=== PATIENT | female | born 1955 | race Caucasian/White ===

== ENCOUNTER 2016-11-27 01:59 | Observation (INO) | payer OTHER ==
[~2016-11-27] VITALS: Ht 160 cm; Wt 98.8 kg
[~2016-11-27 01:59] MED LIST: ALLEGRA180 MG PO; ALTACE5 MG PO; ASPIR 8181 M1 PO; BELBUCA150 MCG BC; CENTRUM SILVER1 EAC4 PO; COLACE100 MG PO; CYCLOBENZAPRINE5 MG PO; DUEXIS 800-26.1 EACH PO; FISH OIL 1,0001 EAC7 PO; FLECTOR 1.3%1 PATC1 TD; GABAPENTIN300 MG PO; HYDROCHLOROTHIA25 MG PO; JOINT SUPPORT PO; LIDOCAINE700 MG TD; LO-DOSE ASPIRIN81 M2 PO; MUCINEX1200 MG PO; NIFEDIPINE20 MG PO; PREDNISONE10 MG PO; PRILOSEC OTC20 MG PO; PRILOSEC20 MG PO; PROAIR HFA8.5 GM IH; RAMIPRIL10 MG PO; RAMIPRIL5 MG PO; TIZANIDINE HCL4 MG PO; TRAMADOL HCL50 MG PO; UNISOM SLEEP AI25 MG PO; UNISOM50 MG PO; [UNRECOGNIZED DRUG - REMARK] PO
[2016-11-27 02:49] LABS: EOSINOPHIL COUNT 0.2 K/uL (0-0.3); HEMATOCRIT 36.2 % (36.0-46.0); IMMATURE GRANULOCYTE (%) 0.2 % (0.0-0.7); INSTRUMENT ABS NEUTROPHIL CT 2.3 K/uL; LYMPHOCYTE COUNT 3.3 K/uL (1.0-2.8); MCH 30.8 PG (29.0-34.0); MCHC 33.7 G/DL (30.0-36.0); MCV 91.4 FL (83-99); MONOCYTE (%) 5.8 % (3-12); MONOCYTE COUNT 0.4 K/uL (0-0.8); NEUTROPHIL COUNT 2.3 K/uL (1.8-6.4); RBC DIS.WIDTH-CV 12.6 % (11.8-14.6); RBC DIS.WIDTH-SD 42.1 % (39-53); RED BLOOD COUNT 3.96 M/uL (3.80-5.20); WHITE BLOOD COUNT 6.2 K/uL (4.1-10.2)
[2016-11-27 02:56] LABS: PROTHROMBIN TIME 10.7 SEC (10.2-12.9)
[2016-11-27 02:58] LABS: CHLORIDE 107 mEq/L (99-109); POTASSIUM 4.4 mEq/L (3.7-5.4); SODIUM 139 mEq/L (136-147)
[2016-11-27 03:00] LABS: GLUCOSE 109 mg/dL (70-99)
[2016-11-27 03:01] LABS: ANION GAP 9 MEQ/L (2-14)
[2016-11-27 03:03] LABS: SERUM ETHYL ALCOHOL < 10 mg/dL
[2016-11-27 03:04] LABS: GFR ESTIMATE (CALCULATED) > 59 mL/min/; UREA NITROGEN (BUN) 17 mg/dL (9-23)
[2016-11-27 03:11] LABS: PTT 18.7 SEC (25-37); TROP-I INTERPRETATION NEGATIVE; TROPONIN-I < 0.01 ng/mL (0.0-0.30)
[2016-11-27 03:36] LABS: MEAN PLAT.VOLUME 10.3 uM^3 (9.5-12.4); PLAT.SUFFICIENCY ADEQUATE; PLATELET COUNT 206 K/uL (156-360)
[2016-11-27 04:13] LABS: ADD MIUA? YES; BILIRUBIN NEGATIVE; BLOOD NEGATIVE; COLOR YELLOW ((YELLOW)); GLUCOSE (STRIP) NEGATIVE; KETONES NEGATIVE; LEUKOCYTES SMALL; NITRITE POSITIVE; PROTEIN (STRIP) NEGATIVE; SPECIFIC GRAVITY 1.018 (1.000-1.030); UROBILINOGEN 0.2 MG/DL (0.2-1.0)
[2016-11-27 04:16] LABS: BACTERIA 2+ /HPF; EPITHELIAL CELLS NONE SEEN /HPF; MUCUS TRACE /LPF; RED BLOOD CELLS 0-5 /HPF (0-5); UCUL ADDED? YES
[2016-11-27 04:22] LABS: AMPHETAMINE NEGATIVE (500 ng/mL); BARBITURATES NEGATIVE (200 ng/mL); BENZODIAZEPINES NEGATIVE (150 ng/mL); COCAINE NEGATIVE (150 ng/mL); INTERNAL CONTROLS VALID? YES; METHADONE NEGATIVE (200 ng/mL); METHAMPHETAMINE NEGATIVE (500 ng/mL); OPIATES (MORPHINE) NEGATIVE (100 ng/mL); OXYCODONE NEGATIVE (100 ng/mL); PHENCYCLIDINE NEGATIVE (25 ng/mL); PROPOXYPHENE NEGATIVE (300 ng/mL); THC CANNABINOIDS NEGATIVE (50 ng/mL); TRICYCLIC ANTIDEPRESSANTS NEGATIVE (300 ng/mL)
[2016-11-27 07:13] LABS: HDL CHOLESTEROL 48 MG/DL (Desirable>=50); LDL CHOLESTEROL 70 mg/dL (Desirable<100); NON-HDL CHOLESTEROL 89 mg/dL (Desirable<160); TOTAL CHOLESTEROL 137 mg/dL (Desirable<200); TRIGLYCERIDES 95 MG/DL (Normal: <150)
[2016-11-27 07:42] LABS: Estimated Average Glucose 103 mg/dL (70-123); HEMOGLOBIN A1c (GLYCOHEMOGLOB) 5.2 % HGB (Below 5.7)
[2016-11-27 07:58] VITALS: BP 108/61
[2016-11-27 12:03] VITALS: BP 115/87
[2016-11-27 20:00] VITALS: BP 152/82
[2016-11-27 23:24] VITALS: BP 159/78
[2016-11-28 04:07] VITALS: BP 152/70
[2016-11-28] MEDS ORDERED: ELIQUIS5 MG PO (09:54)
[2016-11-28] MEDS ORDERED: CEFTIN250 MG PO (09:56)
[2016-11-28] MEDS ORDERED: PRAVACHOL40 MG PO (11:36)
== END 2016-11-28 12:46 | disposition home or self-care (01) ==
LOC: EME 01:59 → EDOF 05:58 → 5WEST 05:58 → EDOF 05:58 → ENRESERV 05:59 → 5WEST 07:15
PROVIDERS: Emergency Medicine
DX: G45.9 Transient cerebral ischemic attack, unspecified (principal); R00.1 Bradycardia, unspecified; N39.0 Urinary tract infection, site not specified; I95.9 Hypotension, unspecified; I10 Essential (primary) hypertension; K21.9 Gastro-esophageal reflux disease without esophagitis; M41.9 Scoliosis, unspecified; I48.0 Paroxysmal atrial fibrillation; I27.20 Pulmonary hypertension, unspecified; Z79.82 Long term (current) use of aspirin; R94.31 Abnormal electrocardiogram [ECG] [EKG]; G89.29 Other chronic pain; E78.5 Hyperlipidemia, unspecified; Z88.1 Allergy status to other antibiotic agents; Z88.2 Allergy status to sulfonamides
CPT/HCPCS: 70450; 70496; 70498; 70551; 80048; 80061; 81003; 82150; 83036; 83690; 84484; 85025; 85610; 85730; 86850; 86900; 86901; 87040; 87077; 87086; 87186; 93005; 93306; 99281; 99285; G0378; G0480; J0696; J1644; J7030; J7050